=== PATIENT | male | born 1990 | race Caucasian/White ===

== ENCOUNTER → 2018-05-23 15:02 | Emergency (ER) | payer OTHER ==
[2018-05-23] MEDS: NS 0.9% 1000 ML* 2,000 ML IV ONE (15:59)
[2018-05-23 16:10] LABS: ABS Basophils 0 10^3/ul (0-0.2); ABS Eosinophils 0.1 10^3/ul (0-0.6); ABS Lymphocytes 1.5 10^3/ul (1.0-4.8); ABS Monocytes 0.5 10^3/ul (0-0.8); ABS Nucleated RBC 0 10^3/ul; Eosinophil % 1.9 % (0-6); Hematocrit 45 % (42-52); Hemoglobin 15.6 g/dl (14.0-18.0); Lymphocyte % 24.6 % (25-47); Mean Corpuscular HGB Conc 35 g/dl (31-36); Mean Corpuscular Hemoglobin 31 pg (27-31); Mean Corpuscular Volume 88 fL (80-94); Mean Platelet Volume 7.5 um3 (7.4-10.4); Nucleated Red Blood Cells % 0.1; Platelet Count 266 10^3/ul (150-450); Red Blood Count 5.08 10^6/ul (4.00-5.40); Red Cell Distribution Width 14 % (10.5-15); White Blood Count 6.1 10^3/ul (3.5-10.8)
--- NOTE | 2018-05-23 16:12 | RAD ---
INDICATION: Dizziness COMPARISON: None TECHNIQUE: An AP portable view obtained at 1605 hours is submitted. FINDINGS: Bones/Soft Tissues: There are no acute bony findings. Cardiomediastinal: The cardiomediastinal silhouette is normal. Lungs: There are no infiltrates. Pleura: There are no pleural effusions. Other: None IMPRESSION: NORMAL CHEST
[2018-05-23 16:23] LABS: INR 0.98 (0.77-1.02)
[2018-05-23 16:25] LABS: EGFR Non-African American 119.4 (>60)
[2018-05-23 16:53] LABS: Urine Appearance Clear; Urine Blood Negative (Negative); Urine Color Yellow; Urine Ketones Negative (Negative); Urine Protein Negative (Negative); Urine Specific Gravity 1.015 (1.010-1.030); Urine Urobilinogen Negative (Negative)
--- NOTE | 2018-05-23 18:25 | ED ---
Ry Ritter Jade, scribed for Gordon Melo MD on 05/23/18 at 1535 . Complex/Multi-Sys Presentation - HPI Summary HPI Summary: Pt is a 27 y/o male who presents to the ED c/o joint stiffness and dizziness. 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 Pt called the , who advised him to come to the ED for laboratory tests. Pt states he woke up stiff, feels tingling in his throat, has intermittent eye twitches, a racing heart, heart burn that radiates to his back, right flank pain, joint pain, lightheadedness, dizziness, chest pain, nausea, and feels like the roof of his mouth is rough. He states that he takes both Xanax and Cymbalta, and that his current symptoms do not feel like anxiety. Pt has had 3 tick bites in this past year. He does not want to take any pain medications. Pt states that he knows somebody with the same symptoms 4 weeks ago that was admitted to [facility] with no diagnosis. - History Of Current Complaint Chief Complaint: EDGeneral Time Seen by Provider: 05/23/18 15:22 Hx Obtained From: Patient Onset/Duration: Gradual Onset, Lasting Days - 2, Still Present Timing: Constant Severity Currently: Severe - 8/10 Associated Signs And Symptoms: Positive: Chest Pain, Nausea - Allergies/Home Medications Allergies/Adverse Reactions: Allergies Allergy/AdvReac Type Severity Reaction Status Date / Time sertraline [From Zoloft] Allergy Numbness Verified 05/23/18 15:12 And Tingling Home Medications: Home Medications ALPRAZolam TAB* [Xanax TAB*] 0.5 mg PO BID PRN 05/23/18 [History Confirmed 05/23] Hyoscyamine TAB* [Anaspaz 0.125 MG TAB*] 0.125 mg PO AC PRN 05/23/18 [History Confirmed 05/23/18] [place]-3S/Dha/Epa/Fish Oil [Fish Oil 1,200 mg Softgel] 1 each PO DAILY 05/23/18 [ History Confirmed 05/23/18] Pantoprazole TAB (NF) [Protonix TAB (NF)] 40 mg PO DAILY 05/23/18 [History Confirmed 05/23/18] Ranitidine TAB (NF) [Zantac TAB (NF)] 300 mg PO DAILY 05/23/18 [History Confirmed 05/23/18] PMH/Surg Hx/FS Hx/Imm Hx Endocrine/Hematology History: Reports: Other Endocrine/Hematological Disorders - Sicca syndrome GI History: Reports: Hx Gastroesophageal Reflux Disease, Hx Irritable Bowel Psychiatric History: Reports: Hx Anxiety, Hx Attention Deficit Hyperactivity Disorder Infectious Disease History: No Infectious Disease History: Denies: Traveled Outside the [place] in Last 30 Days - Family History Known Family History: Positive: Cardiac Disease, Hypertension, Blood Disorder - Blood clot disorder, Other - Cancer, anxiety - Social History Lives: With Family Alcohol Use: None Smoking Status (MU): Former Smoker Review of Systems Positive: Other - Eye twitch ENT: Other - "Rough" roof of mouth Positive: Chest Pain, Other - Racing heart Positive: Nausea, Other - Heart burn radiating to his back Positive: flank pain - right Positive: Arthralgia - Generalized, Other - Muscle stiffness Neurological: Other - Lightheadedness, dizziness Positive: Paresthesia - Throat All Other Systems Reviewed And Are Negative: Yes Physical Exam - Summary Physical Exam Summary: General: well-appearing, no pain distress Skin: warm, color reflects adequate perfusion, dry Head: normal Eyes: EOMI, JOSE L ENT: ecchymosis on roof of mouth where partial dentures are. Neck: supple, nontender Respiratory: CTA, breath sounds present Cardiovascular: RRR Abdomen: soft, nontender Bowel: present Musculoskeletal: normal, strength/ROM intact Neurological: sensory/motor intact, A&O x3 Psychological: affect/mood appropriate Triage Information Reviewed: Yes Vital Signs On Initial Exam: Initial Vitals Temp Pulse Resp BP Pulse Ox 98.2 F 74 16 157/87 97 05/23/18 15:05 05/23/18 15:05 05/23/18 15:05 05/23/18 15:05 05/23/18 15:05 Vital Signs Reviewed: Yes Diagnostics - Vital Signs Vital Signs Temp Pulse Resp BP Pulse Ox 05/23/18 15:05 98.2 F 74 16 157/87 97 - Laboratory Lab Results: Lab Results 05/23/18 05/23/18 05/23/18 Range/Units 16:01 16:01 16:01 WBC 6.1 (3.5-10.8) 10^3/ul RBC 5.08 (4.00-5.40) 10^6/ul Hgb 15.6 (14.0-18.0) g/dl Hct 45 (42-52) % MCV 88 (80-94) fL MCH 31 (27-31) pg MCHC 35 (31-36) g/dl RDW 14 (10.5-15) % Plt Count 266 (150-450) 10^3/ul MPV 7.5 (7.4-10.4) um3 Neut % (Auto) 64.8 (38-83) % Lymph % (Auto) 24.6 L (25-47) % Callahan % (Auto) 8.1 H (0-7) % Eos % (Auto) 1.9 (0-6) % Baso % (Auto) 0.6 (0-2) % Absolute Neuts (auto) 4.0 (1.5-7.7) 10^3/ul Absolute Lymphs (auto) 1.5 (1.0-4.8) 10^3/ul Absolute Monos (auto) 0.5 (0-0.8) 10^3/ul Absolute Eos (auto) 0.1 (0-0.6) 10^3/ul Absolute Basos (auto) 0 (0-0.2) 10^3/ul Absolute Nucleated RBC 0 10^3/ul Nucleated RBC % 0.1 INR (Anticoag Therapy) 0.98 (0.77-1.02) APTT 29.3 (26.0-36.3) seconds D-Dimer, Quantitative < 200 (Less Than 230) ng/mL Sodium 136 (135-145) mmol/L Potassium 4.0 (3.5-5.0) mmol/L Chloride 103 (101-111) mmol/L Carbon Dioxide 25 (22-32) mmol/L Anion Gap 8 (2-11) mmol/L BUN 10 (6-24) mg/dL Creatinine 0.77 (0.67-1.17) mg/dL Est GFR ( Amer) 144.5 (>60) Est GFR (Non-Af Amer) 119.4 (>60) BUN/Creatinine Ratio 13.0 (8-20) Glucose 99 (70-100) mg/dL Lactic Acid (0.5-2.0) mmol/L Calcium 9.7 (8.6-10.3) mg/dL Magnesium 2.2 (1.9-2.7) mg/dL Total Bilirubin 0.60 (0.2-1.0) mg/dL AST 20 (13-39) U/L ALT 21 (7-52) U/L Alkaline Phosphatase 96 (34-104) U/L Total Creatine Kinase 72 (10-223) U/L CK-MB (CK-2) 1.0 (0.6-6.3) ng/mL Troponin I 0.00 (<0.04) ng/mL C-Reactive Protein < 1.00 (<8.01) mg/L B-Natriuretic Peptide ( - 100) pg/mL Total Protein 7.8 (6.4-8.9) g/dL Albumin 4.5 (3.2-5.2) g/dL Globulin 3.3 (2-4) g/dL Albumin/Globulin Ratio 1.4 (1-3) Lipase 13 (11.0-82.0) U/L TSH 1.11 (0.34-5.60) mcIU/mL Urine Color Urine Appearance Urine pH (5-9) Ur Specific [place] (1.010-1.030) Urine Protein (Negative) Urine Ketones (Negative) Urine Blood (Negative) Urine Nitrate (Negative) Urine Bilirubin (Negative) Urine Urobilinogen (Negative) Ur Leukocyte Esterase (Negative) Urine Glucose (Negative) Urine Ascorbic Acid (Negative) Acetaminophen < 15 mcg/mL 05/23/18 05/23/18 05/23/18 Range/Units 16:01 16:01 16:47 WBC (3.5-10.8) 10^3/ul RBC (4.00-5.40) 10^6/ul Hgb (14.0-18.0) g/dl Hct (42-52) % MCV (80-94) fL MCH (27-31) pg MCHC (31-36) g/dl RDW (10.5-15) % Plt Count (150-450) 10^3/ul MPV (7.4-10.4) um3 Neut % (Auto) (38-83) % Lymph % (Auto) (25-47) % Callahan % (Auto) (0-7) % Eos % (Auto) (0-6) % Baso % (Auto) (0-2) % Absolute Neuts (auto) (1.5-7.7) 10^3/ul Absolute Lymphs (auto) (1.0-4.8) 10^3/ul Absolute Monos (auto) (0-0.8) 10^3/ul Absolute Eos (auto) (0-0.6) 10^3/ul Absolute Basos (auto) (0-0.2) 10^3/ul Absolute Nucleated RBC 10^3/ul Nucleated RBC % INR (Anticoag Therapy) (0.77-1.02) APTT (26.0-36.3) seconds D-Dimer, Quantitative (Less Than 230) ng/mL Sodium (135-145) mmol/L Potassium (3.5-5.0) mmol/L Chloride (101-111) mmol/L Carbon Dioxide (22-32) mmol/L Anion Gap (2-11) mmol/L BUN (6-24) mg/dL Creatinine (0.67-1.17) mg/dL Est GFR ( Amer) (>60) Est GFR (Non-Af Amer) (>60) BUN/Creatinine Ratio (8-20) Glucose (70-100) mg/dL Lactic Acid 1.0 (0.5-2.0) mmol/L Calcium (8.6-10.3) mg/dL Magnesium (1.9-2.7) mg/dL Total Bilirubin (0.2-1.0) mg/dL AST (13-39) U/L ALT (7-52) U/L Alkaline Phosphatase (34-104) U/L Total Creatine Kinase (10-223) U/L CK-MB (CK-2) (0.6-6.3) ng/mL Troponin I (<0.04) ng/mL C-Reactive Protein (<8.01) mg/L B-Natriuretic Peptide 17 ( - 100) pg/mL Total Protein (6.4-8.9) g/dL Albumin (3.2-5.2) g/dL Globulin (2-4) g/dL Albumin/Globulin Ratio (1-3) Lipase (11.0-82.0) U/L TSH (0.34-5.60) mcIU/mL Urine Color Yellow Urine Appearance Clear Urine pH 6.0 (5-9) Ur Specific [place] 1.015 (1.010-1.030) Urine Protein Negative (Negative) Urine Ketones Negative (Negative) Urine Blood Negative (Negative) Urine Nitrate Negative (Negative) Urine Bilirubin Negative (Negative) Urine Urobilinogen Negative (Negative) Ur Leukocyte Esterase Negative (Negative) Urine Glucose Negative (Negative) Urine Ascorbic Acid * A (Negative) Acetaminophen mcg/mL Result Diagrams: 05/23/18 16:01 05/23/18 16:01 Lab Statement: Any lab studies that have been ordered have been reviewed, and results considered in the medical decision making process. - Radiology CXR Xray Interpretation: No Acute Changes - 15:35: NORMAL CHEST. ED physician reviewed radiology report. Radiology Interpretation Completed By: Radiologist - EKG 15:38 Cardiac Rate: NL - 64 bpm EKG Rhythm: Sinus Rhythm ST Segment: Normal Ectopy: None Complex Multi-Symp Course/Dx Course Of Treatment: DISCUSSED RESULTS WITH THE PATIENT AND HIS FATHER. F/U PMD ; RETURN TO THE EMERGENCY DEPARTMENT IF WORSE. - Diagnoses Provider Diagnoses: Dizziness, Fatigue Discharge - Sign-Out/Discharge Documenting (check all that apply): Discharge/Admit/Transfer - Discharge Plan Condition: Stable Disposition: HOME Patient Education Materials: Dizziness (ED) Referrals: Pallavi Lock PA [Primary Care Provider] - Additional Instructions: FOLLOW UP WITH YOUR DOCTOR. GET RECHECKED FOR ANY WORSENING OF YOUR CONDITION OR QUESTIONS OR CONCERNS. - Billing Disposition and Condition Condition: STABLE Disposition: Home The documentation as recorded by the Ry godinez Jade accurately reflects the service I personally performed and the decisions made by me, Gordon Melo MD.
[2018-05-23 18:51] VITALS: BP 154/100
== END | disposition home or self-care (01) ==
LOC: ED 15:02
DX: R42 Dizziness and giddiness (principal); R53.83 Other fatigue; R07.9 Chest pain, unspecified; R10.9 Unspecified abdominal pain; M35.00 Sjogren syndrome, unspecified; K21.9 Gastro-esophageal reflux disease without esophagitis; F41.9 Anxiety disorder, unspecified; F90.9 Attention-deficit hyperactivity disorder, unspecified type; Z79.899 Other long term (current) drug therapy; Z88.8 Allergy status to other drugs, medicaments and biological substances
CPT/HCPCS: 36415; 71045; 80053; 80329; 81003; 82550; 82553; 83605; 83690; 83735; 83880; 84443; 84484; 85025; 85379; 85610; 85730; 86140; 93005; 96360; 99282; G0480